=== PATIENT | female | born 1955 | race Caucasian/White ===

== ENCOUNTER → 2024-02-02 08:36 | Outpatient (REF) | payer BC, SELFPAY ==
[2024-02-02 10:24] LABS: % Basophils 1.3 % (0-2); % Eosinophils 2.9 % (0-6); % Immature Granulocytes 0.2 % (0-0.5); % Lymphocytes 35.7 % (20.5-51.1); % Monocytes 10.9 % (1.7-9.3); Absolute Basophils 0.1 10^3/uL (0-0.2); Absolute Eosinophils 0.1 10^3/uL (0-0.7); Absolute Lymphocytes 1.6 10^3/uL (1.2-3.4); Absolute Monocytes 0.5 10^3/uL (0.1-0.6); Absolute Neutrophils 2.2 10^3/uL (1.4-6.5); Hematocrit 43.9 % (37.0-47.0); Hemoglobin 14.4 g/dL (12.0-16.0); Mean Corp Hgb Conc. 32.8 g/dL (33.0-37.0); Mean Corpuscular Hgb 29.6 pg (27.0-31.0); Mean Corpuscular Volume 90.3 fL (81.0-99.0); Mean Platelet Volume 12.1 fL (7.4-10.4); Nucleated Red Blood Cells % 0 %; Platelet Count 183 10^3/uL (130-400); Red Blood Cell Count 4.86 10^6/uL (4.20-5.40); Red Cell Dist. Width 13.3 % (11.5-14.5); White Blood Cell Count 4.5 10^3/uL (4.8-10.8)
[2024-02-02 10:52] LABS: ALT (SGPT) 29 U/L (0-35); AST (SGOT) 32 U/L (14-36); Albumin 4.2 g/dl (3.5-5.0); Alkaline Phosphatase 98 U/L (38-126); Blood Urea Nitrogen 17 mg/dl (7-17); Carbon Dioxide 27 mmol/L (22-30); Chloride 106 mmol/L (98-107); Glucose 81 mg/dl (70-99); HDL Cholesterol 62 mg/dl; LDL Cholesterol, Calculated 164 mg/dl; Potassium 4.5 mmol/L (3.5-5.1); Sodium 139 mmol/L (135-145); Total Cholesterol 250 mg/dl (50-199); Total Protein 6.6 g/dl (6.3-8.2); Triglyceride 123 mg/dl (10-149); Very Low Density Lipoprotein 24 mg/dl (0-30); eGFR > 60.00
[2024-02-02 11:15] LABS: Vitamin D, 25-OH*** 26.8 ng/mL (30-80)
[2024-02-02 11:29] LABS: TSH 3.17 uIU/ml (0.47-4.68)
== END ==
LOC: REG 08:36
PROVIDERS: ATTENDING PHYSICIAN Nurse Practitioner
DX: M79.672 Pain in left foot (principal); M25.579 Pain in unspecified ankle and joints of unspecified foot; E78.5 Hyperlipidemia, unspecified; R53.83 Other fatigue; E55.9 Vitamin D deficiency, unspecified
CPT/HCPCS: 36415; 73610; 73630; 80053; 80061; 82306; 84443; 85025

== ENCOUNTER → 2024-02-20 09:20 | Outpatient (REF) | payer BC, SELFPAY | LOC: HWRAD 09:20 | PROVIDERS: ATTENDING PHYSICIAN Nurse Practitioner | DX: Z13.31 Encounter for screening for depression (principal); M81.0 Age-related osteoporosis without current pathological fracture | CPT/HCPCS: 77063; 77067; 77080 ==

== ENCOUNTER → 2024-03-20 06:21 | Day surgery (SDC) | payer BC, SELFPAY | LOC: GI 06:21 | PROVIDERS: ATTENDING PHYSICIAN Internal Medicine | DX: Z12.11 Encounter for screening for malignant neoplasm of colon (principal); K57.30 Diverticulosis of large intestine without perforation or abscess without bleeding; K64.8 Other hemorrhoids; D12.3 Benign neoplasm of transverse colon; Z80.0 Family history of malignant neoplasm of digestive organs | CPT/HCPCS: 45380; 88305 ==

== ENCOUNTER 2025-04-02 10:12 | Inpatient (IN) | payer BC, MEDICARE, SELFPAY ==
[2025-04-02 06:08] VITALS: BP 124/90
[2025-04-02 06:30] VITALS: BP 142/84
[2025-04-02 07:14] LABS: Hematocrit 41.2 % (37.0-47.0); Hemoglobin 13.7 g/dL (12.0-16.0); Mean Corp Hgb Conc. 33.3 g/dL (33.0-37.0); Mean Corpuscular Volume 88.8 fL (81.0-99.0); Nucleated Red Blood Cells % 0 %; Platelet Count 186 10^3/uL (130-400); Red Cell Dist. Width 13.6 % (11.5-14.5)
[2025-04-02 07:18] LABS: ALT (SGPT) 237 U/L (0-35); AST (SGOT) 176 U/L (14-36); Albumin 3.8 g/dl (3.5-5.0); Alkaline Phosphatase 328 U/L (38-126); Blood Urea Nitrogen 17 mg/dl (7-17); Calcium 9.9 mg/dl (8.4-10.2); Carbon Dioxide 24 mmol/L (22-30); Chloride 107 mmol/L (98-107); Glucose 97 mg/dl (70-99); Potassium 3.8 mmol/L (3.5-5.1); Sodium 137 mmol/L (135-145); Total Protein 6.8 g/dl (6.3-8.2); eGFR > 60.00
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
[2025-04-02] MEDS: MAXIPIME 1000 MG IV (08:09)
[2025-04-02] MEDS: VANCOCIN 540 MG IV (08:33)
[2025-04-02] MEDS: TORADOL 15 MG IV (08:48)
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
--- NOTE | 2025-04-02 10:16 | CM ---
CM reviewed chart and met with pt bedside in ED. Lives with her sister, 2 story home, 2 steps to enter. Pt has first floor BR/full BA.
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
Confirms prescription coverage.
No hx VN or SNF.
PCP; Keshia Shearer
Pharmacy: [facility]
Anticipate discharge home, CM will continue to follow for any discharge planning needs.
[2025-04-02 11:15] VITALS: BP 153/59
[2025-04-02 11:21] VITALS: BMI 38.5
--- NOTE | 2025-04-02 11:51 | CON.ID ---
Consultation
-
Date/Time Consultation Requested: 04/02/2025 1053
Date/Time Consultation Performed: 04/02/2025 1140
Requesting Provider: Dr. Oliveros
Performing Provider: Dr. Brar
Reason for Consultation: Left thigh cellulitis
Chief Complaint / Past History
History of Present Illness
Irma Oh is a 69-year-old female without significant past medical history being evaluated at the request of Dr. Oliveros regarding a medial left thigh SSTI. History is obtained from chart review, along with patient interview.
The patient reports that she was in her usual state of health until approximately 4 days prior to admission when she noted a small amount of irritation in the left medial thigh area. Over the course of the day the area became warm and developed
swelling and progressive erythema. The following day she had a telehealth visit with her PCP who thought the area may be secondary to a 'spider bite' and she was prescribed a Medrol Dosepak. The following day she was seen in the office and further
steroids were discontinued, and the patient was placed on a course of Bactrim DS BID. Despite antibiotic therapy, the area became progressively more painful, and began to drain. She then presented to the emergency room for further evaluation.
She denies any fevers or chills. Currently the pain is 2/10, but at its greatest was 10 out of 10. She is noted progressive erythema in the area but no inguinal swelling. She notes no prior history of pimples or boils. 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
Past History
Additional Past Medical History:
Chronic back pain
Additional Past Surgical History:
Tonsillectomy
Allergy History:
bee venom protein (honey bee) Allergy (Verified 04/02/25 06:07)
Swelling
penicillin V potassium (From Pen-Vee K) Allergy (Verified 04/02/25 09:13)
diarrhea
spider venom Allergy (Verified 04/02/25 06:07)
Unknown
Current Antibiotics:
Cefazolin
Social History
Tobacco: Former Smoker (Very remote in the 1980s)
Alcohol: Occasional
Drug: None
Living: With Family
Employment: Employed
Family History
Family History: Not Pertinent
Review of Systems
Vital Signs
Temp Pulse Resp BP Pulse Ox
98.1 F 92 19 153/59 97
04/02/25 11:15 04/02/25 11:15 04/02/25 11:15 04/02/25 11:15 04/02/25 11:15
Physical Exam
Physical Exam
Constitutional: No Acute Distress, Comfortable and Non-toxic
Eyes: No Conjunctival Hemorrhage and Sclera Anicteric
Oral: No Thrush and No Ulcers
Cardiovascular: Regular Rate and S1/S2; Negative S3/S4
Pulmonary: Clear; Negative Wheezes, Rales or Rhonchi
Gastrointestinal: Soft, Non Tender, Non Distended and Normal Bowel Sounds
Extremities: Other (Right medial thigh with swelling, induration and a central area of drainage.)
Musculoskeletal: Negative Joint Swelling or Joint Effusion
Neurological: Awake and Alert
Psychological: Calm
Lab / Diagnostic Study Results
04/02/25 06:40
04/02/25 06:40
Abs Immat Gran (auto) 0.0 10^3/uL (0-0.05) 04/02/25 06:40
Absolute Neuts (auto) 6.0 10^3/uL (1.4-6.5) 04/02/25 06:40
Absolute Lymphs (auto) 1.6 10^3/uL (1.2-3.4) 04/02/25 06:40
Absolute Monos (auto) 0.9 10^3/uL (0.1-0.6) H 04/02/25 06:40
Absolute Basos (auto) 0.1 10^3/uL (0-0.2) 04/02/25 06:40
Immature Gran % 0.3 % (0-0.5) 04/02/25 06:40
Neutrophils % 69.6 % (42.2-75.2) 04/02/25 06:40
Lymphocytes % 18.0 % (20.5-51.1) L 04/02/25 06:40
Monocytes % 10.4 % (1.7-9.3) H 04/02/25 06:40
Eosinophils % 1.0 % (0-6) 04/02/25 06:40
Basophils % 0.7 % (0-2) 04/02/25 06:40
Lactic Acid Cancelled 04/02/25 11:15
Microbiology Results
Micro:
04/02/25 07:37 Wound Culture - Pending
Leg - Left Gram Stain - Preliminary
04/02/25 07:37 Blood Culture - Pending
Blood/Venous
04/02/25 07:13 Blood Culture - Pending
Blood/Venous
Imaging:
04/02/2025 CT left lower extremity with IV contrast: Skin thickening and subcutaneous inflammatory fat stranding at the medial aspect of the left upper thigh, most compatible with cellulitis. No well-defined rim-enhancing fluid collection to suggest
a soft tissue abscess. Please see full dictation for additional detail. Film personally reviewed.
Assessment / Plan
Right medial thigh carbuncle
- Culture pending, but Gram stain reveals presence of gram-positive cocci
Recommendations:
Clinically, area appears consistent with a severe SSTI, possibly secondary to MRSA.
Continue with vancomycin for the present.
Continue with cefazolin.
Await further culture data to guide further antimicrobial selection and de-escalation. Likely will have preliminary inflammation tomorrow.
Monitor white count and temperature curve.
Local care to the wound area.
K-pad to the area
--- NOTE | 2025-04-02 12:19 | PHA.VAN.IN ---
Assessment
- Assessment
Renal Function: Appears similar to baseline
Concomitant Antimicrobials: cefazolin
AUC Dosing Plan
- Dosing Variables
Dosing Weight (kg): 105
Dosing CrCl (ml/min): 91
Vd coefficient (L/kg): 0.7
- Empiric Dosing
Initial / Loading Dose: 2000mg - 04/02 08:33
Maintenance Regimen: Vanc 1250mg Q12H starting at 1800
Estimated AUC (mcg*h/mL): 451
Estimated Peak (mcg*h/mL): 27.6
Estimated Trough (mcg/ml): 11.9
Estimated Half Life (H): 8.7
- Monitoring
No levels ordered at this time: consider levels in next few days
Pharmacokinetics Vancomycin I
- -
Patient Age: 69
Patient Sex: Female
Vancomycin Day #: 1
Indication: Skin And Soft Tissue
Requesting Provider: Dr. Brar
Pertinent Antimicrobial Allergies:
penicillin - diarrhea
Height / Weight:
Height 5 ft 5 in
Actual Weight 104.95 kg
Pertinent Past Medical History: BMI ~39
- Vital Signs / Lab Results
Temp Pulse Resp BP Pulse Ox
98.1 F 92 19 153/59 97
04/02/25 11:15 04/02/25 11:15 04/02/25 11:15 04/02/25 11:15 04/02/25 11:15
Lab Results - Hematology
04/02/25
06:40
WBC 8.6
Lab Results - Chemistry
04/02/25
06:40
BUN 17
Creatinine 0.7
Albumin 3.8
04/02/25 04/02/25
07:13 11:15
Lactic Acid 0.6 L Cancelled
Microbiology Results
04/02/25 07:37 Gram Stain - Preliminary
Leg - Left
[2025-04-02] MEDS: ANCEF 10 IV ×2 (14:24→22:19)
[2025-04-02 14:55] VITALS: BP 121/64
--- NOTE | 2025-04-02 15:16 | WOUNDNOTE ---
WO RN note: Patient admitted with left thigh cellulitis
See H&P for complete history.
PMH: Arthritis, elevated LFT's noted this admission
Wound Location and type/assessment: Patient admitted with left thigh cellulitis which has developed over the past few days but worsened since last evening. The area is painful, draining sanguinous drainage. Plan is for IV antibiotics
Appetite: Good
Pressure redistribution devices in place: Versa Car Accumax, patient turns easily in bed.
Plan: Will clean with Vashe and cover PRN with dry dressing as tolerated, as site painful. ID also following with patient.
Will confirm orders with hospitalist and update nurse. Updated care plan and will follow as needed.
Note to case management of equipment requested for discharge:
Recommend follow up at wound care center upon discharge.
--- NOTE | 2025-04-02 15:34 | WOUNDNOTE ---
LEFT THIGH WOUND
[2025-04-02] MEDS: VANCOCIN 275 MG IV (18:11)
[2025-04-02] MEDS: LOVENOX 40 MG SC (18:14)
[2025-04-02] MEDS: TORADOL 10 MG IV (18:15)
[2025-04-02 18:28] LABS: Hepatitis C Antibody Negative (Negative)
[2025-04-02 23:20] VITALS: BP 125/76
[2025-04-03] MEDS: MOTRIN 600 MG PO ×2 (03:30→18:23)
[2025-04-03] MEDS: ANCEF 10 IV (05:39)
[2025-04-03] MEDS: VANCOCIN 275 MG IV (05:54)
[2025-04-03 07:00] VITALS: BP 111/47
[2025-04-03 07:09] LABS: Hematocrit 35.5 % (37.0-47.0); Hemoglobin 11.6 g/dL (12.0-16.0); Mean Corp Hgb Conc. 32.7 g/dL (33.0-37.0); Mean Corpuscular Volume 88.1 fL (81.0-99.0); Platelet Count 181 10^3/uL (130-400); Red Cell Dist. Width 13.6 % (11.5-14.5)
[2025-04-03 07:14] LABS: ALT (SGPT) 129 U/L (0-35); AST (SGOT) 65 U/L (14-36); Albumin 3.0 g/dl (3.5-5.0); Alkaline Phosphatase 266 U/L (38-126); Blood Urea Nitrogen 15 mg/dl (7-17); Calcium 9.1 mg/dl (8.4-10.2); Carbon Dioxide 25 mmol/L (22-30); Chloride 109 mmol/L (98-107); Estimated Creatinine Clearance 91 ml/min; Glucose 97 mg/dl (70-99); Potassium 4.4 mmol/L (3.5-5.1); Sodium 136 mmol/L (135-145); Total Protein 5.6 g/dl (6.3-8.2); eGFR > 60.00
--- NOTE | 2025-04-03 08:05 | PHA.VAN.FU ---
Vancomycin Assessment / Plan
- Assessment
Renal Function: Stable
WBC's are: WNL
In the past 24 hrs, patient has been: Afebrile
Concomitant Antimicrobials: cefazolin
- Dosing Plan
Continue: Vanc 1250mg Q12H
- Monitoring Plan
No level(s) ordered at this time: consider levels in next few days
- Follow Up
Pharmacy will continue to follow.
Vancomycin Follow UP
- -
Patient Age: 69
Patient Sex: Female
Vancomycin Day #: 2
Indication: Skin And Soft Tissue
Requesting Provider: Dr. Brar
Pertinent Antimicrobial Allergies:
penicillin - diarrhea
Height / Weight:
Height 5 ft 5 in
Actual Weight 104.95 kg
Pertinent Past Medical History: BMI ~39
- Vital Signs / Lab Results
Temp Pulse Resp BP Pulse Ox
98.5 F 73 18 111/47 95
04/03/25 07:00 04/03/25 07:00 04/03/25 07:00 04/03/25 07:00 04/03/25 07:15
Lab Results - Hematology
04/02/25 04/03/25
06:40 06:28
WBC 8.6 6.9
Lab Results - Chemistry
04/02/25 04/03/25
06:40 06:28
BUN 17 15
Creatinine 0.7 0.7
Estimated Creat Clear 91
Albumin 3.8 3.0 L
04/02/25 04/02/25
07:13 11:15
Lactic Acid 0.6 L Cancelled
Microbiology Results
04/02/25 07:37 Blood Culture - Preliminary
Blood/Venous No Growth in 24 hours- Final report to follow
04/02/25 07:13 Blood Culture - Preliminary
Blood/Venous No Growth in 24 hours- Final report to follow
04/02/25 07:37 Gram Stain - Preliminary
Leg - Left
--- NOTE | 2025-04-03 08:13 | W.PN.HOSP.TC ---
Addendum entered and electronically signed by Deangelo Horan MD 04/03/25 13:17:
Left lower extremity cellulitis/thigh cellulitis
Appears to be improving
Currently on vancomycin and Ancef
Blood cultures negative to date
Wound culture pending
CK load
Initiate Motrin 600 mg 3 times daily
Discontinue IV Toradol
ID following
Potentially may be able to go home later today if cleared by infectious diseases
Liver disease, unclear as to etiology/specificity
Will need continued outpatient hepatology/GI follow-up
Avoid hepatotoxins
Original Note:
Today's Communication/Plan
-
Continue IV antibiotics
Ultrasound today
Continue monitoring for any worsening pain
Assessment / Plan
Assessment / Plan
Assessment:
69-year-old female with no significant past medical history came to the ED due to left thigh erythema and tenderness alongside some draining that began this past Sunday. Patient symptoms started off as possible bug bite with surrounding area of
erythema that ranged around 2 to 3 cm. It was mildly tender at the time and did not have much draining. Patient had a teleconference with her PCP on Sunday who advised her to begin a Medrol Dosepak. Her symptoms did not get better following this
and she ended up going to the PCP in person, who started her on Bactrim. She was started on 600 mg p.o. twice daily and took the medication for around 2 days with no significant improvement. Patient's symptoms continue to worsen, and started
develop some discoloration, turning purple, and increased pain. Patient was advised by her PCP to go to the ED for further evaluation. In the ED, patient was found to have large area of erythema in her left thigh with marked draining. She was
given dose of cefepime and vancomycin. She was also found to have elevated liver enzymes, patient does not have any history of liver disease in the past. Patient was admitted to the hospital for further management of her cellulitis. Patient was
started on Ancef by vancomycin and ID was consulted for further management.
Plan:
#Left thigh cellulitis
- No tachycardia, no tachypnea, no difficulty breathing, no fever, no leukocytosis, no elevated lactate, no evidence of sepsis
- Patient to be admitted to Med/Surg for further antibiotics
- CT scan showed no abscess, just cellulitis
- Received 1 dose of cefepime and vancomycin in the ED
- ID consulted, input appreciated
- Will start on Ancef 2 g every 8 hours and vancomycin
- Area is draining, wound care as per wound care team, consult placed
- Pain medicine as needed
- Will check CPK due to discoloration, no necrotizing fasciitis seen on CT scan. CPK normal
- Area of erythema improving, blood cultures negative, awaiting wound cultures
#Elevated LFTs
- No abdominal pain, no history of elevated enzymes
- Possibly due to Bactrim, but unclear etiology
- Ultrasound right upper quadrant abdomen ultrasound later today
- LFTs trending down
- Continue monitoring, trend LFTs
Full Code
DVT prophylaxis: Lovenox
Anticipated Discharge: Within 24 hours
Subjective/Interval History
-
Date of Service: April 03, 2025
Patient states that she has been feeling much better, reports that her pain is much improved as well as the redness has much decreased from before. Has not had any episodes of fever, chills, abdominal pain or nausea and is feeling much better
overall.
Objective Data
-
Labs:
Laboratory Results
04/03/25
06:28
WBC 6.9
Hgb 11.6 L
Hct 35.5 L
Plt Count 181
Sodium 136
Potassium 4.4
Chloride 109 H
Carbon Dioxide 25
BUN 15
Creatinine 0.7
Glucose 97
Calcium 9.1
Total Bilirubin 0.7 D
AST 65 H
ALT 129 H
Alkaline Phosphatase 266 H
Vital Signs:
Vital Signs
Temp Pulse Resp BP Pulse Ox
98.5 F 73 18 111/47 95
04/03/25 07:00 04/03/25 07:00 04/03/25 07:00 04/03/25 07:00 04/03/25 07:15
I&O
04/02/25 04/03/25 04/04/25
06:59 06:59 06:59
Intake Total 1440 / 1440
Balance 1440 / 1440
Review of Systems
-
History Source: Patient
Constitutional: Reports No Symptoms
EENT: Reports No Symptoms Reported
Respiratory: Reports No Symptoms
Cardiac: Reports No Symptoms
Abdomen/GI: Reports No Symptoms
Genitourinary: Reports No Symptoms
Musculoskeletal: Reports No Symptoms
Skin: Reports Other (Left thigh erythema, tenderness)
Neuro: Reports No Symptoms
Endocrine: Reports No Symptoms
Hematologic / Lymphatic: Reports No Symptoms
Allergy / Immunology: Reports No Symptoms
Physical Exam
-
General: Well Developed, Well Nourished, No Apparent Distress and Comfortable
HEENT: Normocephalic and Atraumatic
Respiratory: Clear to Auscultation
Cardiac: Regular Rhythm and S1/S2
GI: Soft, Nontender, Nondistended and Normal Bowel Sounds
Genito-urinary: No Costovertebral Tender
Musculoskeletal: No Clubbing, No Cyanosis and No Edema
Skin: Other (Large area of erythema and tenderness on the inside of the left thigh, much reduced from before)
Neuro: Awake, Alert, Oriented and AO x 3
Psych: Calm
Data Reviewed
-
Labs: Labs Reviewed by me, Discussed with Physician and Discussed with Patient
[2025-04-03] MEDS: TORADOL 10 MG IV (11:08)
--- NOTE | 2025-04-03 13:43 | W.PN.ID1 ---
Date of Service
Date of Service: April 03, 2025
Today's Communication
Transition to daptomycin.
Assessment / Plan
Right medial thigh carbuncle
- Culture pending, but Gram stain reveals presence of gram-positive cocci
Recommendations:
Wound cultures revealed the presence of MRSA.
Discontinue further cefazolin.
Discontinue vancomycin and transition to once daily daptomycin.
Given marked induration and tenderness, would continue with IV antibiotics for an additional 24 to 48 hours depending upon clinical improvement. Thereafter, potential transition to oral linezolid to complete therapy.
Continue with local care to the area.
Continue K-pad.
����������������������������������������������������������
Chief Complaint
-: Cellulitis
Subjective / Review of Systems
Patient seen and examined. Reports ongoing significant right medial thigh discomfort.
Vital Signs / Physical Exam
Vital Signs
Vital Signs
Temp Pulse Resp BP Pulse Ox
98.5 F 73 18 111/47 95
04/03/25 07:00 04/03/25 07:00 04/03/25 07:00 04/03/25 07:00 04/03/25 07:15
Physical Exam
Constitutional: No Acute Distress, Comfortable and Non-toxic
Cardiovascular: S1/S2; Negative S3/S4
Pulmonary: Non Labored
Gastrointestinal: Soft and Non Distended
Extremities: Other (Left medial thigh with significant erythema, induration and tenderness.)
Neurological: Awake and Alert
Psychological: Calm
Objective Data
Lab Data
Lab Results
04/03/25 06:28
04/03/25 06:28
Estimated Creat Clear 91 ml/min 04/03/25 06:28
Lactic Acid Cancelled 04/02/25 11:15
Total Bilirubin 0.7 mg/dl (0.2-1.3) D 04/03/25 06:28
AST 65 U/L (14-36) H 04/03/25 06:28
ALT 129 U/L (0-35) H 04/03/25 06:28
Alkaline Phosphatase 266 U/L (38-126) H 04/03/25 06:28
Most recent labs reviewed.
Micro Results:
04/02/25 07:37 Wound Culture - Preliminary
Leg - Left Staph aureus MRSA
Gram Stain - Preliminary
04/02/25 07:37 Blood Culture - Preliminary
Blood/Venous No Growth in 24 hours- Final report to follow
04/02/25 07:13 Blood Culture - Preliminary
Blood/Venous No Growth in 24 hours- Final report to follow
04/02/25 16:30 MRSA Screen - Pending
Nose
Imaging:
04/02/2025 CT left lower extremity with IV contrast: Skin thickening and subcutaneous inflammatory fat stranding at the medial aspect of the left upper thigh, most compatible with cellulitis. No well-defined rim-enhancing fluid collection to suggest
a soft tissue abscess. Please see full dictation for additional detail. Film personally reviewed.
[2025-04-03] MEDS: CUBICIN 20 MG IV (15:07)
[2025-04-03 15:29] VITALS: BP 127/79
--- NOTE | 2025-04-03 15:37 | CM ---
Chart reviewed and possible 1-2 more days of IV ABX then switch to oral per ID, home no needs.
Plan; Home no needs.
[2025-04-03] MEDS: LOVENOX 40 MG SC (17:02)
[2025-04-03 23:53] VITALS: BP 104/59
[2025-04-04 07:29] VITALS: BP 110/67
[2025-04-04] MEDS: MOTRIN 600 MG PO ×3 (08:52→21:43)
[2025-04-04 09:53] LABS: Blood Urea Nitrogen 14 mg/dl (7-17); Calcium 9.4 mg/dl (8.4-10.2); Carbon Dioxide 23 mmol/L (22-30); Chloride 110 mmol/L (98-107); Estimated Creatinine Clearance 106 ml/min; Glucose 146 mg/dl (70-99); Potassium 4.7 mmol/L (3.5-5.1); Sodium 138 mmol/L (135-145); eGFR > 60.00
[2025-04-04 10:04] LABS: Hematocrit 38.7 % (37.0-47.0); Hemoglobin 12.5 g/dL (12.0-16.0); Mean Corp Hgb Conc. 32.3 g/dL (33.0-37.0); Mean Corpuscular Volume 89.2 fL (81.0-99.0); Platelet Count 221 10^3/uL (130-400); Red Cell Dist. Width 13.7 % (11.5-14.5)
--- NOTE | 2025-04-04 11:59 | W.PN.UPDATE ---
Update Note
Progress Note Update
Left lower extremity cellulitis/thigh cellulitis
Appears to be improving
Vancomycin discontinued. Ancef discontinued
Wound culture growing MRSA
ID started daptomycin with plans to transition to linezolid on discharge
Blood cultures negative to date
Wound culture MRSA
Initiated Motrin 600 mg 3 times daily
Discontinue IV Toradol
Potentially may be able to go home later today if cleared by infectious diseases
Liver disease, unclear as to etiology/specificity
Will need continued outpatient hepatology/GI follow-up
Avoid hepatotoxins
[2025-04-04] MEDS: CUBICIN 20 MG IV (15:10)
[2025-04-04 15:20] VITALS: BP 125/84
--- NOTE | 2025-04-04 15:54 | W.PN.HOSP.TC ---
Addendum entered and electronically signed by Deangelo Horan MD 04/04/25 17:25:
please see update note
Original Note:
Today's Communication/Plan
-
Continue daptomycin
Assessment / Plan
Assessment / Plan
Assessment:
69-year-old female with no significant past medical history came to the ED due to left thigh erythema and tenderness alongside some draining that began this past Sunday. Patient symptoms started off as possible bug bite with surrounding area of
erythema that ranged around 2 to 3 cm. It was mildly tender at the time and did not have much draining. Patient had a teleconference with her PCP on Sunday who advised her to begin a Medrol Dosepak. Her symptoms did not get better following this
and she ended up going to the PCP in person, who started her on Bactrim. She was started on 600 mg p.o. twice daily and took the medication for around 2 days with no significant improvement. Patient's symptoms continue to worsen, and started
develop some discoloration, turning purple, and increased pain. Patient was advised by her PCP to go to the ED for further evaluation. In the ED, patient was found to have large area of erythema in her left thigh with marked draining. She was
given dose of cefepime and vancomycin. She was also found to have elevated liver enzymes, patient does not have any history of liver disease in the past. Patient was admitted to the hospital for further management of her cellulitis. Patient was
started on Ancef by vancomycin and ID was consulted for further management.
Plan:
#Left thigh carbuncle
- CT with no evidence of abscess, just cellulitis. However, will monitor given indurated center today
- Wound culture with MRSA. Blood cultures negative. initially on ancef, transitioned to vancomycin and now Daptomycin per ID recs. appears to be improving. Transition to oral upon discharge
- Area is draining, wound care as per wound care team, consult placed
- Pain control
- Area of erythema improving, blood cultures negative, awaiting wound cultures
#Elevated LFTs
- No abdominal pain, no history of elevated enzymes
- Abdominal US with moderate diffuse liver disease with no evidence of biliary obstruction or cholelithiasis.
- LFTs trending down
- Will need continued outpatient hepatology/GI follow-up
- Avoid hepatotoxins
Full Code
DVT prophylaxis: Lovenox
Anticipated Discharge: 24 - 48 hours
Subjective/Interval History
-
Date of Service: April 04, 2025
Pt feels that pain is reduced today
Objective Data
-
Labs:
Laboratory Results
04/04/25
09:23
WBC 5.5
Hgb 12.5
Hct 38.7
Plt Count 221 D
Sodium 138
Potassium 4.7
Chloride 110 H
Carbon Dioxide 23
BUN 14
Creatinine 0.5 L
Glucose 146 H
Calcium 9.4
Vital Signs:
Vital Signs
Temp Pulse Resp BP Pulse Ox
97.8 F 88 17 125/84 97
04/04/25 15:20 04/04/25 15:20 04/04/25 15:20 04/04/25 15:20 04/04/25 15:20
I&O
04/03/25 04/04/25 04/05/25
06:59 06:59 06:59
Intake Total 1440 / 1440 480 / 480
Balance 1440 / 1440 480 / 480
Review of Systems
-
History Source: Patient
Constitutional: Denies Fever
Respiratory: Denies Trouble Breathing
Cardiac: Denies Chest Pain or Palpitations
Abdomen/GI: Denies Abdominal Pain, Nausea, Vomiting, Diarrhea or Bloody Stools
Genitourinary: Denies Dysuria, Difficulty Voiding or Bleeding
Skin: Reports Other (left inner thigh painful rash)
Physical Exam
-
General: Well Developed, Well Nourished and No Apparent Distress
HEENT: Normocephalic, Atraumatic and Moist Mucous Membranes
Respiratory: Clear to Auscultation and Non Labored Respirations; Negative Wheezes, Rales, Rhonchi or Crackles
Cardiac: Regular Rhythm and S1/S2; Negative Murmur, Rub or Calf Tenderness
GI: Soft, Nontender, Nondistended and Normal Bowel Sounds
Musculoskeletal: No Clubbing and No Cyanosis
Skin: Other (area of redness and tendrness of upper inner left thigh, with hard indurated center. Dressing intact)
Neuro: Awake, Alert and Oriented
Psych: Calm
[2025-04-04] MEDS: LOVENOX 40 MG SC (17:05)
[2025-04-04 23:00] VITALS: BP 109/65
[2025-04-05 07:30] VITALS: BP 119/79
[2025-04-05 07:30] LABS: Hematocrit 35.6 % (37.0-47.0); Hemoglobin 11.3 g/dL (12.0-16.0); Mean Corp Hgb Conc. 31.7 g/dL (33.0-37.0); Mean Corpuscular Volume 90.1 fL (81.0-99.0); Platelet Count 219 10^3/uL (130-400); Red Cell Dist. Width 13.5 % (11.5-14.5)
[2025-04-05 08:02] LABS: Blood Urea Nitrogen 13 mg/dl (7-17); Calcium 9.2 mg/dl (8.4-10.2); Carbon Dioxide 27 mmol/L (22-30); Chloride 109 mmol/L (98-107); Estimated Creatinine Clearance 106 ml/min; Glucose 104 mg/dl (70-99); Potassium 4.4 mmol/L (3.5-5.1); Sodium 139 mmol/L (135-145); eGFR > 60.00
[2025-04-05] MEDS: MOTRIN 600 MG PO ×3 (08:41→21:20)
--- NOTE | 2025-04-05 10:01 | W.PN.ID1 ---
Date of Service
Date of Service: April 05, 2025
Today's Communication
Given the ongoing marked induration and tenderness, would continue with IV daptomycin for an additional 24 hours
Assessment / Plan
Right medial thigh carbuncle
- Culture pending, but Gram stain reveals presence of gram-positive cocci
Recommendations:
Wound cultures revealed the presence of MRSA.
Given the ongoing marked induration and tenderness, would continue with IV daptomycin for an additional 24 hours depending upon clinical improvement. Thereafter, potential transition to oral linezolid to complete therapy.
Continue with local care to the area.
Continue K-pad.
����������������������������������������������������������
Chief Complaint
-: Cellulitis
Subjective / Review of Systems
afebrile
bp stable
no events overnight
Vital Signs / Physical Exam
Vital Signs
Vital Signs
Temp Pulse Resp BP Pulse Ox
98.8 F 93 16 119/79 95
04/05/25 07:30 04/05/25 07:30 04/05/25 07:30 04/05/25 07:30 04/05/25 07:30
Physical Exam
Constitutional: No Acute Distress
Cardiovascular: Regular Rate
Pulmonary: Symmetric and Non Labored
Gastrointestinal: Non Distended
Skin: Warm and Dry; Negative Rash or Jaundice
Wound: Other (large about 4cm x4 cm indurated lesion with ongoing purulent drainage)
Objective Data
Lab Data
Lab Results
04/05/25 06:30
04/05/25 06:30
Estimated Creat Clear 106 ml/min 04/05/25 06:30
Lactic Acid Cancelled 04/02/25 11:15
Total Bilirubin 0.7 mg/dl (0.2-1.3) D 04/03/25 06:28
AST 65 U/L (14-36) H 04/03/25 06:28
ALT 129 U/L (0-35) H 04/03/25 06:28
Alkaline Phosphatase 266 U/L (38-126) H 04/03/25 06:28
Most recent labs reviewed.
Micro Results:
04/02/25 07:37 Blood Culture - Preliminary
Blood/Venous No Growth in 72 hours- Final report to follow
04/02/25 07:13 Blood Culture - Preliminary
Blood/Venous No Growth in 72 hours- Final report to follow
04/02/25 07:37 Wound Culture - Final
Leg - Left Staph aureus MRSA
Gram Stain - Final
04/02/25 16:30 MRSA Screen - Final
Nose No Methicillin Resistant Staphylococcus aureus isolated.
Imaging:
04/02/2025 CT left lower extremity with IV contrast: Skin thickening and subcutaneous inflammatory fat stranding at the medial aspect of the left upper thigh, most compatible with cellulitis. No well-defined rim-enhancing fluid collection to suggest
a soft tissue abscess. Please see full dictation for additional detail. Film personally reviewed.
--- NOTE | 2025-04-05 11:00 | W.PN.UPDATE ---
Update Note
Progress Note Update
Left lower extremity cellulitis/thigh cellulitis
Appears to be improving
Vancomycin discontinued. Ancef discontinued
Wound culture growing MRSA
ID started daptomycin with plans to transition to linezolid on discharge
Blood cultures negative to date
Wound culture MRSA
Initiated Motrin 600 mg 3 times daily
Discontinue IV Toradol
Potentially may be able to go home later today if cleared by infectious diseases
Liver disease, unclear as to etiology/specificity
Will need continued outpatient hepatology/GI follow-up
Avoid hepatotoxins
Per ID continue Dapto for additional 24hours
--- NOTE | 2025-04-05 12:17 | W.PN.HOSP.TC ---
Addendum entered and electronically signed by Deangelo Horan MD 04/05/25 12:43:
Left lower extremity cellulitis/thigh cellulitis
Appears to be improving
Vancomycin discontinued. Ancef discontinued
Wound culture growing MRSA
ID started daptomycin with plans to transition to linezolid on discharge
Blood cultures negative to date
Wound culture MRSA
Initiated Motrin 600 mg 3 times daily
Discontinue IV Toradol
Potentially may be able to go home later today if cleared by infectious diseases
Liver disease, unclear as to etiology/specificity
Will need continued outpatient hepatology/GI follow-up
Avoid hepatotoxins
Per ID continue Dapto for additional 24hours
Original Note:
Today's Communication/Plan
-
Continue Daptomycin
Assessment / Plan
Assessment / Plan
Assessment:
69-year-old female with no significant past medical history came to the ED due to left thigh erythema and tenderness alongside some draining that began this past Sunday. Patient symptoms started off as possible bug bite with surrounding area of
erythema that ranged around 2 to 3 cm. It was mildly tender at the time and did not have much draining. Patient had a teleconference with her PCP on Sunday who advised her to begin a Medrol Dosepak. Her symptoms did not get better following this
and she ended up going to the PCP in person, who started her on Bactrim. She was started on 600 mg p.o. twice daily and took the medication for around 2 days with no significant improvement. Patient's symptoms continue to worsen, and started
develop some discoloration, turning purple, and increased pain. Patient was advised by her PCP to go to the ED for further evaluation. In the ED, patient was found to have large area of erythema in her left thigh with marked draining. She was
given dose of cefepime and vancomycin. She was also found to have elevated liver enzymes, patient does not have any history of liver disease in the past. Patient was admitted to the hospital for further management of her cellulitis. Patient was
started on Ancef by vancomycin and ID was consulted for further management.
Plan:
#Left thigh carbuncle
- CT with no evidence of abscess, just cellulitis. improving. Area of redness much smaller than onset
- Wound culture with MRSA. Blood cultures negative. initially on ancef, transitioned to vancomycin and now Daptomycin per ID recs. appears to be improving. Transition to linezolid upon discharge
- Area is draining, wound care as per wound care team
- Pain control
#Elevated LFTs
- No abdominal pain, no history of elevated enzymes
- Abdominal US with moderate diffuse liver disease with no evidence of biliary obstruction or cholelithiasis.
- LFTs trending down
- Will need continued outpatient hepatology/GI follow-up
- Avoid hepatotoxins
Full Code
DVT prophylaxis: Lovenox
Anticipated Discharge: 24 - 48 hours
Subjective/Interval History
-
Date of Service: April 05, 2025
Objective Data
-
Labs:
Laboratory Results
04/05/25
06:30
WBC 4.6 L
Hgb 11.3 L
Hct 35.6 L
Plt Count 219
Sodium 139
Potassium 4.4
Chloride 109 H
Carbon Dioxide 27
BUN 13
Creatinine 0.6
Glucose 104 H
Calcium 9.2
Vital Signs:
Vital Signs
Temp Pulse Resp BP Pulse Ox
98.8 F 93 16 119/79 95
04/05/25 07:30 04/05/25 07:30 04/05/25 07:30 04/05/25 07:30 04/05/25 07:30
I&O
04/04/25 04/05/25 04/06/25
06:59 06:59 06:59
Intake Total 480 / 480 960 / 960 540 / 540
Balance 480 / 480 960 / 960 540 / 540
Review of Systems
-
History Source: Patient
Constitutional: Denies Fever or No Appetite
Respiratory: Denies Trouble Breathing
Cardiac: Denies Chest Pain or Palpitations
Abdomen/GI: Denies Abdominal Pain, Nausea, Vomiting, Diarrhea, Constipated or Bloody Stools
Genitourinary: Denies Dysuria, Difficulty Voiding or Bleeding
Skin: Reports Other (pain/swelling in upper inner thigh)
Physical Exam
-
General: Well Developed, Well Nourished, No Apparent Distress and Comfortable
HEENT: Normocephalic and Atraumatic
Respiratory: Clear to Auscultation and Non Labored Respirations; Negative Wheezes, Rales, Rhonchi or Crackles
Cardiac: Regular Rhythm and S1/S2; Negative Murmur, Rub or Calf Tenderness
GI: Soft, Nontender, Nondistended and Normal Bowel Sounds
Musculoskeletal: No Clubbing, No Cyanosis and No Edema
Skin: Warm, Dry and Other (Area of redness and tenderness with large indurated center. Purulent drainage from wound)
Neuro: Awake, Alert and Oriented
Psych: Calm
[2025-04-05] MEDS: CUBICIN 20 MG IV (14:39)
[2025-04-05 15:25] VITALS: BP 109/70
[2025-04-05] MEDS: LOVENOX 40 MG SC (17:06)
[2025-04-05 22:43] VITALS: BP 123/66
[2025-04-06 07:00] VITALS: BP 130/76
--- NOTE | 2025-04-06 08:30 | W.PN.HOSP.TC ---
Today's Communication/Plan
-
Continue IV antibiotics
Discharge today with oral antibiotics pending ID approval
Assessment / Plan
Assessment / Plan
Assessment:
69-year-old female with no significant past medical history came to the ED due to left thigh erythema and tenderness alongside some draining that began this past Sunday. Patient symptoms started off as possible bug bite with surrounding area of
erythema that ranged around 2 to 3 cm. It was mildly tender at the time and did not have much draining. Patient had a teleconference with her PCP on Sunday who advised her to begin a Medrol Dosepak. Her symptoms did not get better following this
and she ended up going to the PCP in person, who started her on Bactrim. She was started on 600 mg p.o. twice daily and took the medication for around 2 days with no significant improvement. Patient's symptoms continue to worsen, and started
develop some discoloration, turning purple, and increased pain. Patient was advised by her PCP to go to the ED for further evaluation. In the ED, patient was found to have large area of erythema in her left thigh with marked draining. She was
given dose of cefepime and vancomycin. She was also found to have elevated liver enzymes, patient does not have any history of liver disease in the past. Patient was admitted to the hospital for further management of her cellulitis. Patient was
started on Ancef and vancomycin and ID was consulted for further management. Patient was eventually switched to daptomycin following sensitivities that showed MRSA positivity. Patient continued on IV antibiotics over the weekend with continued
improvement in symptoms.
Plan:
#Left thigh cellulitis and carbuncle
- CT with no evidence of abscess, just cellulitis. improving. Area of redness much smaller than onset
- Wound culture with MRSA. Blood cultures negative. initially on ancef, transitioned to vancomycin and now Daptomycin per ID recs. Erythema much improved from before, appears to be improving. Transition to linezolid upon discharge
- Area is draining, wound care as per wound care team
- Pain control
#Elevated LFTs
- No abdominal pain, no history of elevated enzymes
- Abdominal US with moderate diffuse liver disease with no evidence of biliary obstruction or cholelithiasis.
- LFTs trending down
- Will need continued outpatient hepatology/GI follow-up
- Avoid hepatotoxins
Full Code
DVT prophylaxis: Lovenox
Anticipated Discharge: Today
Subjective/Interval History
-
Date of Service: April 06, 2025
Patient seen resting comfortably in bed today. Reports that her symptoms are much improved over the weekend, and area of erythema and pain is much less than before. Does not report any fevers, chills, shortness of breath, chest pain.
Objective Data
-
Labs:
Laboratory Results
04/06/25
07:39
WBC Pending
Hgb Pending
Hct Pending
Plt Count Pending
Sodium Pending
Potassium Pending
Chloride Pending
Carbon Dioxide Pending
BUN Pending
Creatinine Pending
Glucose Pending
Calcium Pending
Total Bilirubin Pending
AST Pending
ALT Pending
Alkaline Phosphatase Pending
Vital Signs:
Vital Signs
Temp Pulse Resp BP Pulse Ox
98.1 F 94 18 130/76 97
04/06/25 07:00 04/06/25 07:00 04/06/25 08:23 04/06/25 07:00 04/06/25 07:00
I&O
04/05/25 04/06/25 04/07/25
06:59 06:59 06:59
Intake Total 960 / 960 1560 / 1560
Balance 960 / 960 1560 / 1560
Review of Systems
-
History Source: Patient
Constitutional: Reports No Symptoms
EENT: Reports No Symptoms Reported
Respiratory: Reports No Symptoms
Cardiac: Reports No Symptoms
Abdomen/GI: Reports No Symptoms
Genitourinary: Reports No Symptoms
Musculoskeletal: Reports No Symptoms
Skin: Reports Other (Left thigh erythema, tenderness)
Neuro: Reports No Symptoms
Endocrine: Reports No Symptoms
Hematologic / Lymphatic: Reports No Symptoms
Allergy / Immunology: Reports No Symptoms
Physical Exam
-
General: Well Developed, Well Nourished, No Apparent Distress and Comfortable
HEENT: Normocephalic and Atraumatic
Respiratory: Clear to Auscultation and Non Labored Respirations; Negative Rhonchi or Crackles
Cardiac: Regular Rhythm and S1/S2; Negative Murmur, Rub or Calf Tenderness
GI: Soft, Nontender, Nondistended and Normal Bowel Sounds
Musculoskeletal: No Clubbing, No Cyanosis and No Edema
Skin: Warm, Dry and Other (Area of redness and tenderness with large indurated center. Purulent drainage from wound)
Neuro: Awake, Alert and Oriented
Psych: Calm
Data Reviewed
-
Labs: Labs Reviewed by me, Discussed with Physician and Discussed with Patient
[2025-04-06] MEDS: MOTRIN 600 MG PO (08:57)
[2025-04-06 09:25] LABS: Hematocrit 37.8 % (37.0-47.0); Hemoglobin 12.3 g/dL (12.0-16.0); Mean Corp Hgb Conc. 32.5 g/dL (33.0-37.0); Mean Corpuscular Volume 88.5 fL (81.0-99.0); Platelet Count 257 10^3/uL (130-400); Red Cell Dist. Width 13.5 % (11.5-14.5)
[2025-04-06 09:59] LABS: ALT (SGPT) 71 U/L (0-35); AST (SGOT) 38 U/L (14-36); Albumin 3.5 g/dl (3.5-5.0); Alkaline Phosphatase 235 U/L (38-126); Blood Urea Nitrogen 11 mg/dl (7-17); Calcium 9.4 mg/dl (8.4-10.2); Carbon Dioxide 26 mmol/L (22-30); Chloride 108 mmol/L (98-107); Estimated Creatinine Clearance 106 ml/min; Glucose 86 mg/dl (70-99); Potassium 4.6 mmol/L (3.5-5.1); Sodium 138 mmol/L (135-145); Total Protein 6.1 g/dl (6.3-8.2); eGFR > 60.00
--- NOTE | 2025-04-06 11:50 | W.PN.ID1 ---
Date of Service
Date of Service: April 06, 2025
Today's Communication
Continue antibiotics
Assessment / Plan
Right medial thigh SSTI secondary to MRSA
Recommendations:
Wound cultures with MRSA.
Improvement in induration noted. No drainage from wound itself.
At discharge, transition to linezolid 600 mg p.o. BID for an additional 10 days. No objection to discharge today from a Infectious Disease standpoint.
Patient counseled that wound may persist, and if so, follow-up in the [facility] would be appropriate.
Patient counseled to follow-up for any worsening of the appearance of the area, which may indicate resumption of IV antibiotics may be necessary.
Continue with local care to the area.
����������������������������������������������������������
Chief Complaint
-: Cellulitis (left medial thigh)
Subjective / Review of Systems
Patient seen and examined. Reports ongoing, but diminished left medial thigh pain.
Review of Systems: No Fever and No Chills
Vital Signs / Physical Exam
Vital Signs
Vital Signs
Temp Pulse Resp BP Pulse Ox
98.1 F 94 18 130/76 97
04/06/25 07:00 04/06/25 07:00 04/06/25 08:23 04/06/25 07:00 04/06/25 07:00
Physical Exam
Constitutional: No Acute Distress, Comfortable and Non-toxic
Cardiovascular: S1/S2; Negative S3/S4
Pulmonary: Non Labored
Gastrointestinal: Soft and Non Distended
Extremities: Erythema (Left medial thigh; diminished from prior.) and Other (Induration persists, although slightly decreased.)
Wound: Other (Left medial thigh. Slough in base.)
Neurological: Awake and Alert
Psychological: Calm
Objective Data
Lab Data
Lab Results
04/06/25 07:39
04/06/25 07:39
Estimated Creat Clear 106 ml/min 04/06/25 07:39
Lactic Acid Cancelled 04/02/25 11:15
Total Bilirubin 0.5 mg/dl (0.2-1.3) 04/06/25 07:39
AST 38 U/L (14-36) H 04/06/25 07:39
ALT 71 U/L (0-35) H 04/06/25 07:39
Alkaline Phosphatase 235 U/L (38-126) H 04/06/25 07:39
Most recent labs reviewed.
Micro Results:
04/02/25 07:37 Blood Culture - Preliminary
Blood/Venous No Growth in 4 days- Final report to follow
04/02/25 07:13 Blood Culture - Preliminary
Blood/Venous No Growth in 4 days- Final report to follow
04/02/25 07:37 Wound Culture - Final
Leg - Left Staph aureus MRSA
Gram Stain - Final
04/02/25 16:30 MRSA Screen - Final
Nose No Methicillin Resistant Staphylococcus aureus isolated.
Imaging:
04/02/2025 CT left lower extremity with IV contrast: Skin thickening and subcutaneous inflammatory fat stranding at the medial aspect of the left upper thigh, most compatible with cellulitis. No well-defined rim-enhancing fluid collection to suggest
a soft tissue abscess. Please see full dictation for additional detail. Film personally reviewed.
Care Review
Plan reviewed with: Physician (Hospitalist)
--- NOTE | 2025-04-06 12:11 | W.DCSUMMARY ---
Documented by User: Terrence Can MD, Resident 04/06/25 12:24
Discharge Summary
Discharge Data
Date of Admission: 04/02/25
Date of Discharge: 04/06/25
-
Pending Results: No
Additional Pending Results:
Blood Culture Final Report (No growth seen so far)
Hospital Course
Discharging Physician : Dr. Ramirez Barry, Dr. Terrence Can
Disposition : Home
Primary care physician : Dr. Keshia Shearer
Principal Discharge diagnosis :
Left thigh cellulitis and carbuncle
Elevated LFTs
Chronic Discharge diagnosis :
Arthritis
Hospital Course :
69-year-old female with no significant past medical history came to the ED due to left thigh erythema and tenderness alongside some draining. Patient's symptoms continue to worsen, and started develop some discoloration, turning purple, and with
increased pain. Patient was advised by her PCP to go to the ED for further evaluation. In the ED, patient was found to have large area of erythema in her left thigh with marked draining. She was given dose of cefepime and vancomycin. She was
also found to have elevated liver enzymes, patient does not have any history of liver disease in the past. Patient underwent abdominal ultrasound which showed diffuse liver disease. Patient was admitted to the hospital for further management of her
cellulitis. Patient was started on Ancef and vancomycin and ID was consulted for further management. Patient was eventually switched to daptomycin following sensitivities that showed MRSA positivity. Patient continued on IV antibiotics over the
weekend with continued improvement in symptoms. She was cleared for discharge with instructions to take Linezolid 60mg twice a day for 10 days with instructions to follow up with her PCP within 1 week for continued evaluation of her infection as
well as follow up for her elevated liver enzymes.
Important imaging findings :
CT Lower Ext W/iv Cont Lt: Cellulitis of the medial left upper thigh. No CT evidence for a soft tissue abscess.
US Abdomen Complete/Upper:
1. MODERATE DIFFUSE LIVER DISEASE.
2. No sonographic evidence for biliary obstruction or cholelithiasis.
Procedure findings : N/A
Discharge Plan
-
Patient Disposition: Home (Routine Discharge)
Discharge Diagnosis/Procedures: Left thigh cellulitis and carbuncle
Elevated LFTs
Condition: Good
Diet: Regular
Activity: No restrictions
Driving Restrictions: As prior to admission
Bathing Restrictions: None
Activity Restrictions/Additional Instructions:
Wound Care Instructions Left Medial Thigh- Clean with Vashe moistened gauze for 5 minutes. Cover with silicone border foam or other dry dressing as needed for drainage.
Referrals:
Keshia Shearer MD [Family Provider, Internal Medicine] - in less than 1 week
Referral Note: Please follow up with your PCP within 1 week
Additional Discharge Medication Instructions: Please take Linezolid 600 mg by mouth twice a day for 10 days
Please follow up with your PCP within 1 week for follow up. Please discuss with them your elevated liver enzymes and Liver ultrasound results.
Please stop taking Bactrim and follow wound care instructions
Prescriptions:
New
linezolid 600 mg tablet
600 mg PO BID 10 Days Qty: 20 0RF
Continued
ibuprofen [Advil] 200 mg Tablet
600 mg PO DAILYPRN PRN (Reason: MILD PAIN)
Discontinued
sulfamethoxazole-trimethoprim [Bactrim DS] 800-160 mg Tablet
1 tab PO BID
Rx Instructions:
FOR 7 DAY STARTING 03/31/25
Discharge Orders:
Discharge Patient (As Directed); Ordered 04/06/25
Ordered By: Terrence Can
Discharge Date and Time
Discharge Date/Time: 04/06/25 15:36
Print Language: CAP[place] VERDE[place]

Documented by User: Ramirez Barry DO 04/06/25 16:07
Discharge Summary
Discharge Data
Date of Admission: 04/02/25
Date of Discharge: 04/06/25
Total time spent discharging patient (in min): 36
Discharge Plan
-
Patient Disposition: Home (Routine Discharge)
Discharge Diagnosis/Procedures: Left thigh cellulitis and carbuncle
Elevated LFTs
Condition: Good
Diet: Regular
Activity: No restrictions
Driving Restrictions: As prior to admission
Bathing Restrictions: None
Activity Restrictions/Additional Instructions:
Wound Care Instructions Left Medial Thigh- Clean with Vashe moistened gauze for 5 minutes. Cover with silicone border foam or other dry dressing as needed for drainage.
Referrals:
Keshia Shearer MD [Family Provider, Internal Medicine] - in less than 1 week
Referral Note: Please follow up with your PCP within 1 week
Additional Discharge Medication Instructions: Please take Linezolid 600 mg by mouth twice a day for 10 days
Please follow up with your PCP within 1 week for follow up. Please discuss with them your elevated liver enzymes and Liver ultrasound results.
Please stop taking Bactrim and follow wound care instructions
Prescriptions:
New
linezolid 600 mg tablet
600 mg PO BID 10 Days Qty: 20 0RF
Continued
ibuprofen [Advil] 200 mg Tablet
600 mg PO DAILYPRN PRN (Reason: MILD PAIN)
Discontinued
sulfamethoxazole-trimethoprim [Bactrim DS] 800-160 mg Tablet
1 tab PO BID
Rx Instructions:
FOR 7 DAY STARTING 03/31/25
Discharge Orders:
Discharge Patient (As Directed); Ordered 04/06/25
Ordered By: Terrence Can
Discharge Date and Time
Discharge Date/Time: 04/06/25 15:36
Print Language: CAP[place]
--- NOTE | 2025-04-06 13:40 | CM ---
Patient seen at bedside
discharge today
IMM explained & signed. In chart
PLAN: home, no needs
drove self to hospital
[2025-04-06] MEDS: CUBICIN 20 MG IV (14:46)
[2025-04-06 15:00] VITALS: BP 112/65
== END 2025-04-06 15:36 | disposition home or self-care (01) | DRG 603 ==
LOC: 3 WEST ACU 10:12
PROVIDERS: Nurse Practitioner; Student in an Organized Health Care Education/Training Program; ADMITTING PHYSICIAN Hospitalist; ATTENDING PHYSICIAN Internal Medicine; CONSULT PHYSICIAN Internal Medicine Infectious Disease; EMERGENCY PHYSICIAN Emergency Medicine; FAMILY PHYSICIAN Hospitalist
DX: L03.116 Cellulitis of left lower limb (principal); L02.93 Carbuncle, unspecified; M19.90 Unspecified osteoarthritis, unspecified site; A49.02 Methicillin resistant Staphylococcus aureus infection, unspecified site; G89.29 Other chronic pain; Z87.891 Personal history of nicotine dependence; Z88.0 Allergy status to penicillin
CPT/HCPCS: 73701; 76700; 80048; 80053; 80076; 82550; 83605; 85025; 85027; 86803; 87040; 87070; 87147; 87186; 87205; 96365; 96366; 96375; 99285; J0878; Q9967

== ENCOUNTER → 2025-04-10 07:39 | Outpatient (REF) | payer BC, SELFPAY ==
[2025-04-10 08:52] LABS: Hematocrit 40.9 % (37.0-47.0); Hemoglobin 13.2 g/dL (12.0-16.0); Mean Corp Hgb Conc. 32.3 g/dL (33.0-37.0); Mean Corpuscular Volume 90.1 fL (81.0-99.0); Nucleated Red Blood Cells % 0 %; Platelet Count 281 10^3/uL (130-400); Red Cell Dist. Width 13.2 % (11.5-14.5)
[2025-04-10 12:09] LABS: ALT (SGPT) 49 U/L (0-35); AST (SGOT) 28 U/L (14-36); Albumin 3.8 g/dl (3.5-5.0); Alkaline Phosphatase 166 U/L (38-126); Blood Urea Nitrogen 17 mg/dl (7-17); Calcium 9.8 mg/dl (8.4-10.2); Carbon Dioxide 25 mmol/L (22-30); Chloride 107 mmol/L (98-107); Glucose 81 mg/dl (70-99); Potassium 4.8 mmol/L (3.5-5.1); Sodium 137 mmol/L (135-145); Total Protein 6.7 g/dl (6.3-8.2); eGFR > 60.00
== END ==
LOC: REG 07:39
PROVIDERS: ATTENDING PHYSICIAN Hospitalist
DX: R74.8 Abnormal levels of other serum enzymes (principal); K76.0 Fatty (change of) liver, not elsewhere classified
CPT/HCPCS: 36415; 80053; 85025

== ENCOUNTER → 2025-04-17 07:56 | Outpatient (REF) | payer BC, SELFPAY | LOC: WOUND 07:56 | PROVIDERS: ATTENDING PHYSICIAN Surgery; FAMILY PHYSICIAN Internal Medicine | DX: L02.416 Cutaneous abscess of left lower limb (principal); L97.122 Non-pressure chronic ulcer of left thigh with fat layer exposed | CPT/HCPCS: 11042; 99203 ==

== ENCOUNTER → 2025-04-23 11:16 | Outpatient (REF) | payer BC, SELFPAY | LOC: WOUND 11:16 | PROVIDERS: ATTENDING PHYSICIAN Surgery; FAMILY PHYSICIAN Internal Medicine | DX: L02.416 Cutaneous abscess of left lower limb (principal); L97.122 Non-pressure chronic ulcer of left thigh with fat layer exposed | CPT/HCPCS: 99213 ==

== ENCOUNTER → 2025-05-07 09:51 | Outpatient (REF) | payer BC, SELFPAY | LOC: WOUND 09:51 | PROVIDERS: ATTENDING PHYSICIAN Surgery; FAMILY PHYSICIAN Internal Medicine | DX: L97.122 Non-pressure chronic ulcer of left thigh with fat layer exposed (principal); L02.416 Cutaneous abscess of left lower limb | CPT/HCPCS: 99212 ==